=== PATIENT | female | born 1960 | race Caucasian/White ===

== ENCOUNTER 2025-05-11 08:29 | Inpatient (IN) ==
[2025-05-11 10:35] LABS: MEAN PLATELET VOLUME 7.7 fL (7.4-11.0)
[2025-05-11 10:39] LABS: RED CELL DISTRIBUTION WIDTH 12.9 % (11.6-16.5)
[2025-05-11 10:46] LABS: CREATININE 0.91 mg/dL (0.55-1.02); eGFR NON BLACK RACES > 60 (>60)
[2025-05-11] MEDS: TORADOL 15 MG VIAL IVP PRN (10:47)
[2025-05-11] MEDS: FLAGYL IV PREMIX 500 MG BAG 500 MG/100 ML BAG IV SCH (10:48)
[2025-05-11] MEDS: NS 1,000 ML IV 1,000 ML IV SCH ×2 (10:48→19:45)
[2025-05-11] MEDS: ZOFRAN INJ 4 MG VIAL IVP PRN (10:57)
[2025-05-11] MEDS: CIPRO IV 400 MG PREMIX* 400 MG/200 ML IV.SOLN. IV SCH (12:22)
[2025-05-11] MEDS: MORPHINE SULFATE INJ 2 MG INJ IVP PRN (12:52)
[2025-05-11] MEDS ORDERED: PHARMACY CONSULT XX SCH (16:00)
--- NOTE | 2025-05-11 17:17 | DR.H&P ---
H&P History & Physical for Day of: H&P Date: 05/11/25 Chief Complaint Chief Complaint: Abdominal pain History of Present Illness History of Present Illness: Patient presented to the ER in [place] on 05/04/2025 for abdominal pain and diarrhea. Was found to have swelling in the sigmoid colon with concern for cancer versus colitis. Was not placed on any antibiotics but did have leukocytosis. Went home and treated with OTC meds, simple foods, and hydration. Sara was sent in yesterday. Woke up this morning after a bad night with increased diarrhea and abdominal pain. Directly admitted to the floor. Vital stable other than an episode of tachypnea associated with pain. Labs stable other than leukocytosis to 18,000. Patient still with bilateral lower quadrant discomfort and poor p.o. intake. Diarrhea has improved. No nausea or vomiting. Feels weak and exhausted. She is currently drinking her p.o. contrast for repeat CT A/P with contrast. PMH: Postmenopausal, hypothyroidism, SVT. PSH: Appendectomy. 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 No tobacco use. ROS: 12 point ROS negative except as noted above. PE: Well-developed, well-nourished female that appears tired but in no acute distress. Head NCAT, EOMI, hearing intact conversation. Heart regular rate and rhythm. Lungs are clear with strong speech. Belly is soft with bowel sounds present but very tender throughout. No swelling of her extremities and no rash appreciated. Turgor decreased but color appropriate. Mood and affect consistent with condition. Past Medical History Past Medical History: Hypothyroidism and SVT Past Surgical History Surgical History: Appendectomy Family History Family Medical History: Diabetes Mellitus, Cancer, NM, Coronary Artery Disease and Hypertension Social History Does patient currently use any type of tobacco product: No Type of Tobacco Use: None Does any household member use tobacco: No Alcohol Use: None Drug Use: None Medications Home Medications: Home Medications Medication Instructions Recorded Confirmed Type diltiazem HCl 180 mg 180 mg PO QDAY 08/20/2404/20 History capsule,extended release 24 hr (Cartia XT) Allergies Allergies Allergy/AdvReac Type Severity Reaction Status Date / Time codeine AdvReac Intermediate Verified 09/10/24 08:37 gabapentin AdvReac Intermediate Verified 09/10/24 08:37 Labs 05/11/25 10:22 05/11/25 10:22 Labs: Laboratory WBC 18.7 X10^3/uL (3.6-10.0) H 05/11/25 10:22 RBC 5.03 X10^6/uL (3.5-5.4) 05/11/25 10:22 Hgb 15.3 g/dL (12.0-16.0) 05/11/25 10:22 Hct 45.2 % (36.0-47.0) 05/11/25 10:22 MCV 89.7 fL (80.0-100.0) 05/11/25 10:22 MCH 30.4 pg (27.0-34.0) 05/11/25 10:22 MCHC 33.9 g/dL (33.0-35.0) 05/11/25 10:22 RDW 12.9 % (11.6-16.5) 05/11/25 10:22 Plt Count 345 X10^3/uL (150.0-450.0) 05/11/25 10:22 MPV 7.7 fL (7.4-11.0) 05/11/25 10:22 Neut % (Auto) 80.9 % (42.0-75.0) H 05/11/25 10:22 Lymph % (Auto) 8.8 % (21.0-51.0) L 05/11/25 10:22 [place] % (Auto) 9.0 % (0.0-13.0) 05/11/25 10:22 Eos % (Auto) 0.8 % (0.9-2.9) L 05/11/25 10:22 Baso % (Auto) 0.5 % (0.2-1.0) 05/11/25 10:22 Neut # (Auto) 15.1 x10^3/uL (2.2-4.8) H 05/11/25 10:22 Lymph # (Auto) 1.7 X10^3/uL (1.3-2.9) 05/11/25 10:22 [place] # (Auto) 1.7 x10^3/uL (0.3-0.8) H 05/11/25 10:22 Eos # (Auto) 0.1 x10^3/uL (0.0-0.2) 05/11/25 10:22 Baso # (Auto) 0.1 X10^3/uL (0.0-0.1) 05/11/25 10:22 Absolute Nucleated RBC 0.0 /100WBC 05/11/25 10:22 Sodium 137 mmol/L (136-145) 05/11/25 10:22 Corrected Sodium TNP 05/11/25 10:22 Potassium 4.3 mmol/L (3.5-5.1) 05/11/25 10:22 Chloride 101 mmol/L (98-107) 05/11/25 10:22 Carbon Dioxide 26.4 mmol/L (21-32) 05/11/25 10:22 BUN 13 mg/dL (7-18) 05/11/25 10:22 Creatinine 0.91 mg/dL (0.55-1.02) 05/11/25 10:22 Est GFR (MDRD) Af Amer > 60 (>60) 05/11/25 10:22 Est GFR (MDRD) Non-Af > 60 (>60) 05/11/25 10:22 Glucose 95 mg/dL (65-99) 05/11/25 10:22 Lactic Acid 0.5 mmol/L (0.4-2.0) 05/11/25 13:56 Calcium 9.0 mg/dL (8.5-10.1) 05/11/25 10:22 Corrected Calcium TNP 05/11/25 10:22 Magnesium 2.0 mg/dL (2.0-2.9) 05/11/25 10:22 Total Bilirubin 0.50 mg/dL (0.2-1.0) 05/11/25 10:22 AST 22 Units/L (15-37) 05/11/25 10:22 ALT 31 Units/L (12-78) 05/11/25 10:22 Alkaline Phosphatase 76 Units/L (46-116) 05/11/25 10:22 Total Protein 7.8 g/dL (6.4-8.2) 05/11/25 10:22 Albumin 4.0 g/dL (3.4-5.0) 05/11/25 10:22 Globulin 3.8 g/dL (2.5-4.5) 05/11/25 10:22 Albumin/Globulin Ratio 1.1 Ratio (1.1-2.1) 05/11/25 10:22 Amylase 29 Units/L (25-115) 05/11/25 10:22 Lipase 21 Units/L (16-77) 05/11/25 10:22 Physical Exam Vital Signs: Vital Signs Temperature 98.0 F Temperature 98.5 F Temperature 98.3 F Pulse Rate 79 Pulse Rate 76 Pulse Rate 81 Pulse Rate 84 Pulse Rate 82 Pulse Rate 84 Pulse Rate 82 Pulse Rate 82 Respiratory Rate 24 Respiratory Rate 25 Respiratory Rate 13 Respiratory Rate 26 Respiratory Rate 18 Respiratory Rate 27 Respiratory Rate 18 Respiratory Rate 23 Respiratory Rate 18 Respiratory Rate 16 Respiratory Rate 20 Respiratory Rate 18 Respiratory Rate 22 Blood Pressure 140/59 Blood Pressure 121/59 Blood Pressure 118/59 Blood Pressure 113/71 Blood Pressure 111/63 Blood Pressure 107/59 Blood Pressure 119/61 Blood Pressure 132/65 O2 Sat by Pulse Oximetry 97 O2 Sat by Pulse Oximetry 95 O2 Sat by Pulse Oximetry 97 O2 Sat by Pulse Oximetry 96 O2 Sat by Pulse Oximetry 96 O2 Sat by Pulse Oximetry 95 O2 Sat by Pulse Oximetry 97 O2 Sat by Pulse Oximetry 97 Assessment/Plan (1) Sepsis: Qualifiers: Sepsis type: sepsis due to unspecified organism Sepsis acute organ dysfunction status: without acute organ dysfunction Qualified Code(s): A41.9 - Sepsis, unspecified organism Narrative Support Text: IV fluids, IV Cipro, IV Flagyl. Soft diet. Surgery consult. Status: Acute (2) Sigmoiditis: Narrative Support Text: See above. Status: Acute (3) Acquired hypothyroidism: Narrative Support Text: Continue home meds. Status: Acute (4) Menopausal disorder: Narrative Support Text: Hold progesterone and estrogen. Status: Acute (5) Supraventricular tachycardia: Narrative Support Text: Diltiazem at night Status: Chronic
[2025-05-11] MEDS: OMNIPAQUE 350 mg/mL 100 mL BTL 100 ML ONE (17:45)
[2025-05-11] MEDS: READI-CAT 2 ONE (17:45)
--- NOTE | 2025-05-11 18:52 | CT ---
EXAM: CT ABDOMEN AND PELVIS WITH CONTRAST HISTORY: Abdominal pain COMPARISON: None TECHNIQUE: Axial images were acquired of the abdomen and pelvis with IV contrast. Sagittal and coronal reformatted images were provided. All images were reviewed in a variety of windows and levels. RADIATION REDUCTION TECHNIQUE: Automated exposure control, adjustment of the mA and/or kV according to patient size, or iterative reconstruction techniques were used. FINDINGS: LOWER THORAX: The visualized lower lung zones are clear. The heart size is within normal limits. There is no evidence of a pericardial effusion. LIVER: No intrahepatic focal lesions are seen. No evidence of intrahepatic or extrahepatic duct dilation. GALLBLADDER: The gallbladder is unremarkable. SPLEEN: The spleen enhances homogenously and is unremarkable. PANCREAS: The pancreas enhances homogenously and is unremarkable. ADRENAL GLANDS: The adrenal glands enhance homogenously and are unremarkable. : The kidneys enhance homogenously. Their collecting system is of normal caliber.There is a cyst in the left lower pelvis adjacent to the left obturator internus muscle measuring 29 x 27 mm which may represent a left ovarian cyst. The uterus is grossly unremarkable. The right adnexa is not clearly identified on this examination. URINARY BLADDER: The urinary bladder is unremarkable. There are no soft tissue masses seen in the urinary bladder. VESSELS: The abdominal aorta is normal in size without evidence of aneurysm or dissection. The celiac artery, superior mesenteric artery, [place] renal arteries, and inferior mesenteric artery are patent. GI: The stomach and small bowel is unremarkable. Pericolonic inflammatory changes are seen in the region of the sigmoid colon most likely representing acute diverticulitis. The differential diagnosis for this imaging finding should include, but is not limited to colon cancer and therefore follow-up to complete resolution may be obtained as clinically indicated. There are no inflammatory changes seen in the right lower quadrant to suggest secondary signs of acute appendicitis. Constipation is noted. The appendix is not visualized on this examination. LYMPHNODES AND MESENTERY: There is no evidence of retroperitoneal lymphadenopathy. BONES: The visualized bones demonstrate degenerative changes. There are no concerning lytic or blastic lesions identified. IMPRESSION: 1. Pericolonic inflammatory changes are seen in the region of the sigmoid colon most likely representing acute diverticulitis. The differential diagnosis for this imaging finding should include, but is not limited to colon cancer and therefore follow-up to complete resolution may be obtained as clinically indicated. 2. Constipation is noted. 3. There is a cyst in the left lower pelvis adjacent to the left obturator internus muscle measuring 29 x 27 mm which may represent a left ovarian cyst. This would be considered abnormal in a postmenopausal 64-year-old female. Follow-up with coat operator may be obtained as clinically indicated. THIS IS AN ELECTRONICALLY VERIFIED FINAL REPORT 05/11/2025 6:49 PM - Electronically signed by Artem Ellison MD
[2025-05-11] MEDS: CARDIZEM CD 180 MG 24-HR PO SCH (20:40)
[2025-05-12 04:59] LABS: MEAN PLATELET VOLUME 8.0 fL (7.4-11.0); RED CELL DISTRIBUTION WIDTH 12.7 % (11.6-16.5)
[2025-05-12 05:12] LABS: CREATININE 0.83 mg/dL (0.55-1.02); eGFR NON BLACK RACES > 60 (>60)
[2025-05-12 05:21] LABS: COR CA(FOR HYPOALB) 8.7 mg/dL (8.5-10.1)
--- NOTE | 2025-05-12 07:57 | RAD ---
EXAM: KUB HISTORY: ABDOMINAL PAIN ; ASTHMA, VALVULAR HEART DISEASE SX: APPY COMPARISON: CT abdomen and pelvis 05/11/2025 TECHNIQUE: One view FINDINGS: Pubic symphysis is not included on the film. Nonobstructive bowel gas pattern. No free air or air-fluid levels. There is decreased distention compared with the prior study. [id number] amount of stool in the colon. There is residual contrast in the right colon from previous CT scan. Bowel gas is present to the level of the sigmoid. No abnormal calcifications in the distribution of the kidneys or ureters. Bony structures unremarkable. EKG leads are present IMPRESSION: Nonobstructive bowel gas pattern. No free air. Less gaseous distention of bowel loops compared with the prior study. Residual CT contrast in the right colon THIS IS AN ELECTRONICALLY VERIFIED FINAL REPORT 05/12/2025 7:54 AM - Electronically signed by Ramesh Mesa MD
--- NOTE | 2025-05-12 08:13 | DR.PROGNOT ---
HOSPITAL PROGRESS NOTE Progress Note for Day of: Progress Note Date: 05/12/25 Chief Complaint Chief Complaint: Abdominal pain is better today, still having watery bowel movements with negative C. difficile show for. Abdominal CT showed colitis versus diverticulitis. White count is 10,000. Hemoglobin 12.9, electrolytes BUN/creatinine are normal as well as liver function tests. Albumin 2.8, C. difficile negative. Abdomen is soft with diffuse lower abdominal tenderness, no rebound or rigidity, bowel sounds slightly hypoactive. Past Medical Family Social History Allergies: Allergies codeine Adverse Reaction (Intermediate, Verified 09/10/24 08:37) gabapentin Adverse Reaction (Intermediate, Verified 09/10/24 08:37) Vital Signs Vital Signs: Vital Signs Temperature 97.9 F Pulse Rate 62 Respiratory Rate 20 Respiratory Rate 20 Respiratory Rate 20 Respiratory Rate 20 Respiratory Rate 20 Blood Pressure 117/56 O2 Sat by Pulse Oximetry 96 Physical Exam Oriented: Normal Eyes: Normal Ear: Normal Nose: Normal Throat: Normal Respiratory: Normal Cardiovascular: Normal GI:Auscultation: Decreased GI: Tenderness: Diffuse, RLQ and LLQ Speech Pattern: Clear and Appropriate Laboratory and Diagnostics 05/12/25 04:16 05/12/25 04:16 Labs: 05/11/25 19:50 Stool - Final Laboratory WBC 10.0 X10^3/uL (3.6-10.0) D 05/12/25 04:16 RBC 4.12 X10^6/uL (3.5-5.4) 05/12/25 04:16 Hgb 12.9 g/dL (12.0-16.0) D 05/12/25 04:16 Hct 37.1 % (36.0-47.0) 05/12/25 04:16 MCV 89.9 fL (80.0-100.0) 05/12/25 04:16 MCH 31.3 pg (27.0-34.0) 05/12/25 04:16 MCHC 34.8 g/dL (33.0-35.0) 05/12/25 04:16 RDW 12.7 % (11.6-16.5) 05/12/25 04:16 Plt Count 282 X10^3/uL (150.0-450.0) 05/12/25 04:16 MPV 8.0 fL (7.4-11.0) 05/12/25 04:16 Neut % (Auto) 67.7 % (42.0-75.0) 05/12/25 04:16 Lymph % (Auto) 18.9 % (21.0-51.0) L 05/12/25 04:16 [place] % (Auto) 8.5 % (0.0-13.0) 05/12/25 04:16 Eos % (Auto) 3.6 % (0.9-2.9) H 05/12/25 04:16 Baso % (Auto) 1.3 % (0.2-1.0) H 05/12/25 04:16 Neut # (Auto) 6.8 x10^3/uL (2.2-4.8) H 05/12/25 04:16 Lymph # (Auto) 1.9 X10^3/uL (1.3-2.9) 05/12/25 04:16 [place] # (Auto) 0.8 x10^3/uL (0.3-0.8) 05/12/25 04:16 Eos # (Auto) 0.4 x10^3/uL (0.0-0.2) H 05/12/25 04:16 Baso # (Auto) 0.1 X10^3/uL (0.0-0.1) 05/12/25 04:16 Absolute Nucleated RBC 0.2 /100WBC 05/12/25 04:16 Sodium 142 mmol/L (136-145) 05/12/25 04:16 Corrected Sodium TNP 05/12/25 04:16 Potassium 3.9 mmol/L (3.5-5.1) 05/12/25 04:16 Chloride 107 mmol/L (98-107) 05/12/25 04:16 Carbon Dioxide 30.2 mmol/L (21-32) 05/12/25 04:16 BUN 6 mg/dL (7-18) L 05/12/25 04:16 Creatinine 0.83 mg/dL (0.55-1.02) 05/12/25 04:16 Est GFR (MDRD) Af Amer > 60 (>60) 05/12/25 04:16 Est GFR (MDRD) Non-Af > 60 (>60) 05/12/25 04:16 Glucose 85 mg/dL (65-99) 05/12/25 04:16 Lactic Acid 0.5 mmol/L (0.4-2.0) 05/11/25 13:56 Calcium 7.7 mg/dL (8.5-10.1) L 05/12/25 04:16 Corrected Calcium 8.7 mg/dL (8.5-10.1) 05/12/25 04:16 Magnesium 2.0 mg/dL (2.0-2.9) 05/11/25 10:22 Total Bilirubin 0.30 mg/dL (0.2-1.0) 05/12/25 04:16 AST 17 Units/L (15-37) 05/12/25 04:16 ALT 26 Units/L (12-78) 05/12/25 04:16 Alkaline Phosphatase 59 Units/L (46-116) 05/12/25 04:16 Total Protein 5.9 g/dL (6.4-8.2) L 05/12/25 04:16 Albumin 2.8 g/dL (3.4-5.0) L 05/12/25 04:16 Globulin 3.1 g/dL (2.5-4.5) 05/12/25 04:16 Albumin/Globulin Ratio 0.9 Ratio (1.1-2.1) L 05/12/25 04:16 Amylase 29 Units/L (25-115) 05/11/25 10:22 Lipase 21 Units/L (16-77) 05/11/25 10:22 Stl C. diff Tox B Gene Negative (NEGATIVE) 05/11/25 19:50 Stl C. diff [id number] Presumptive negative (NEGATIVE) 05/11/25 19:50 Assessment and Plan 1: Acute colitis versus diverticulitis Patient is on IV Cipro and Flagyl. Clear liquid diet today. Future colonoscopy after the inflammation subsides.
--- NOTE | 2025-05-12 11:03 | NOTE.SOAP ---
Soap Note Note for Day of Date of Exam: 05/12/25 Subjective Data Subjective Data: Patient seen with nurse and at bedside. Slept better overnight. Did have 1 episode of nausea without vomiting. No bowel movement since admission. White count normalized with continued elevation in neutrophils. CT consistent with acute diverticulitis. Surgery is following. Patient is agreeable to colonoscopy this week versus at follow-up in 1 to 2 months. Objective Data Objective Data: Belly grey tender in the lower abdomen but less so. Heart regular in rhythm, lungs are clear with strong speech, bowel sounds present. Mood and affect are appropriate. Overall demeanor much improved. Assessment Assessment: Sepsis, acute, resolving Sigmoiditis, acute, resolving. Likely acute diverticulitis. LEFT adnexal/pelvic cyst, acute. Acquired hypothyroidism, chronic. Plan Plan: Continue current. Needs colonoscopy in 6-8 weeks after recovery. Likely home tomorrow on PO abx. 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
[2025-05-12 23:19] VITALS: BMI 28.1
[2025-05-13 00:06] VITALS: O2SAT 96
[2025-05-13 05:37] LABS: MEAN PLATELET VOLUME 8.7 fL (7.4-11.0); RED CELL DISTRIBUTION WIDTH 12.6 % (11.6-16.5)
[2025-05-13 05:40] LABS: COR CA(FOR HYPOALB) 8.7 mg/dL (8.5-10.1); CREATININE 0.62 mg/dL (0.55-1.02); eGFR NON BLACK RACES > 60 (>60)
[2025-05-13 05:52] LABS: PLATELET MORPHOLOGY COMMENT NORMAL (NORMAL)
--- NOTE | 2025-05-13 08:53 | PCM.DCPLAN ---
DISCHARGE SUMMARY Admission Date Date of Admission: 04/20/25 Discharge Date Discharge Date: 05/13/25 Admission Diagnoses (1) Sepsis: Status: Acute (2) Sigmoiditis: Status: Acute (3) Acquired hypothyroidism: Status: Acute (4) Menopausal disorder: Status: Acute (5) Supraventricular tachycardia: Status: Chronic Discharge Diagnoses Discharge Diagnosis: Sepsis due to acute diverticulitis/sigmoiditis. SVT, menopause, acquired hypothyroidism. Discharge Medications Discharge Medications: Prescriptions: Hospital Course Vital Signs: Vital Signs Temperature 98.1 F Temperature 98.0 F Pulse Rate 71 Pulse Rate 76 Respiratory Rate 18 Respiratory Rate 15 Blood Pressure 118/58 Blood Pressure 118/61 O2 Sat by Pulse Oximetry 96 O2 Sat by Pulse Oximetry 96 Latest Lab Results: Laboratory Last Values WBC 10.6 X10^3/uL (3.6-10.0) H 05/13/25 04:26 RBC 3.79 X10^6/uL (3.5-5.4) 05/13/25 04:26 Hgb 11.8 g/dL (12.0-16.0) L 05/13/25 04:26 Hct 33.8 % (36.0-47.0) L 05/13/25 04:26 MCV 89.0 fL (80.0-100.0) 05/13/25 04:26 MCH 31.2 pg (27.0-34.0) 05/13/25 04:26 MCHC 35.0 g/dL (33.0-35.0) 05/13/25 04:26 RDW 12.6 % (11.6-16.5) 05/13/25 04:26 Plt Count 282 X10^3/uL (150.0-450.0) 05/13/25 04:26 Plt Count Comment Adequate (ADEQUATE) 05/13/25 04:26 MPV 8.7 fL (7.4-11.0) 05/13/25 04:26 Neut % (Auto) 60.2 % (42.0-75.0) 05/13/25 04:26 Lymph % (Auto) 26.5 % (21.0-51.0) 05/13/25 04:26 [place] % (Auto) 7.7 % (0.0-13.0) 05/13/25 04:26 Eos % (Auto) 4.8 % (0.9-2.9) H 05/13/25 04:26 Baso % (Auto) 0.8 % (0.2-1.0) 05/13/25 04:26 Neut # (Auto) 5.8 x10^3/uL (2.2-4.8) H 05/13/25 04:26 Lymph # (Auto) 2.5 X10^3/uL (1.3-2.9) 05/13/25 04:26 [place] # (Auto) 0.7 x10^3/uL (0.3-0.8) 05/13/25 04:26 Eos # (Auto) 0.5 x10^3/uL (0.0-0.2) H 05/13/25 04:26 Baso # (Auto) 0.1 X10^3/uL (0.0-0.1) 05/13/25 04:26 Absolute Nucleated RBC 0.5 /100WBC 05/13/25 04:26 Plt Morphology Comment Normal (NORMAL) 05/13/25 04:26 RBC Morphology Normal (NORMAL) 05/13/25 04:26 Sodium 142 mmol/L (136-145) 05/13/25 04:26 Corrected Sodium TNP 05/13/25 04:26 Potassium 3.7 mmol/L (3.5-5.1) 05/13/25 04:26 Chloride 108 mmol/L (98-107) H 05/13/25 04:26 Carbon Dioxide 27.0 mmol/L (21-32) 05/13/25 04:26 BUN 3 mg/dL (7-18) L 05/13/25 04:26 Creatinine 0.62 mg/dL (0.55-1.02) 05/13/25 04:26 Est GFR (MDRD) Af Amer > 60 (>60) 05/13/25 04:26 Est GFR (MDRD) Non-Af > 60 (>60) 05/13/25 04:26 Glucose 85 mg/dL (65-99) 05/13/25 04:26 Lactic Acid 0.5 mmol/L (0.4-2.0) 05/11/25 13:56 Calcium 7.7 mg/dL (8.5-10.1) L 05/13/25 04:26 Corrected Calcium 8.7 mg/dL (8.5-10.1) 05/13/25 04:26 Magnesium 2.0 mg/dL (2.0-2.9) 05/11/25 10:22 Total Bilirubin 0.20 mg/dL (0.2-1.0) 05/13/25 04:26 AST 18 Units/L (15-37) 05/13/25 04:26 ALT 23 Units/L (12-78) 05/13/25 04:26 Alkaline Phosphatase 54 Units/L (46-116) 05/13/25 04:26 Total Protein 5.6 g/dL (6.4-8.2) L 05/13/25 04:26 Albumin 2.7 g/dL (3.4-5.0) L 05/13/25 04:26 Globulin 2.9 g/dL (2.5-4.5) 05/13/25 04:26 Albumin/Globulin Ratio 0.9 Ratio (1.1-2.1) L 05/13/25 04:26 Amylase 29 Units/L (25-115) 05/11/25 10:22 Lipase 21 Units/L (16-77) 05/11/25 10:22 Stl C. diff Tox B Gene Negative (NEGATIVE) 05/12/25 12:17 Stl C. diff [id number] Presumptive negative (NEGATIVE) 05/12/25 12:17 Hospital Course: Patient admitted with over a week of worsening abdominal pain, nausea, and diarrhea. Diagnosed with sigmoiditis a week ago but not on antibiotics. Admitted and placed on IV Cipro, IV Flagyl, and fluid replacement. She was kept on a liquid diet. She is steadily improved to the point that her abdominal pain is much better tolerated in her neutrophils are normalizing. White count has improved. Vitals have remained stable. Sepsis resolved. General surgery evaluated her and recommended colonoscopy once recovered. She will follow-up with them in 2 to 3 weeks. She will follow-up with me next week. Discharged home on p.o. Cipro and Flagyl with plans to slowly advance diet. Patient and in agreement. Well-developed, well-nourished female in no acute distress. Hearing intact conversation. Heart regular rate and rhythm. Lungs are clear. Belly is less tender to palpation with bowel sounds present. Mood and affect are appropriate. Overall color improved.
[2025-05-13 10:11] VITALS: BP 110/63; PULSE 78; RESP 20; TEMP 97.9
== END 2025-05-13 10:40 | disposition home or self-care (01) | DRG 392 ==
LOC: ICU → OBSVTOIN 09:44
PROVIDERS: ADMIT Family Medicine; ATTEND Family Medicine
DX: F41.8 Other specified anxiety disorders; R10.84 Generalized abdominal pain; N95.8 Other specified menopausal and perimenopausal disorders; E03.8 Other specified hypothyroidism; I47.19 Other supraventricular tachycardia; K52.89 Other specified noninfective gastroenteritis and colitis; Z79.899 Other long term (current) drug therapy; R19.7 Diarrhea, unspecified